=== PATIENT | female | born 1955 | race Caucasian/White ===

== ENCOUNTER 2020-04-03 08:23 | Outpatient (REF) | payer BC, SELFPAY ==
--- NOTE | 2020-04-03 08:26 | MM_ITS ---
EXAMINATION: MM SCREENING DIGITAL BREAST TOMOSYNTHESIS, BILATERAL CLINICAL INFORMATION: Screening. Asymptomatic. The lifetime risk of breast cancer based on the Tyrer-Cuzick Model is 9.7%. COMPARISON: Mammography: April 08, 2019 and studies dating back to February 20, 2011 TECHNIQUE: Digital breast tomosynthesis is performed in both the craniocaudal and mediolateral oblique views along with computer-aided detection (CAD). Synthesized 2D images are generated from the tomosynthesis. FINDINGS: There are scattered areas of fibroglandular density (ACR BI-RADS breast composition Category b). There are no significant masses, abnormal calcifications, or other abnormalities. There are scattered stable circumscribed densities. MM/MM tomosynthesis screening BI IMPRESSION: There are no significant changes from prior study. ASSESSMENT: BI-RADS 1: Negative RECOMMENDATION: Routine annual mammography screening. This patient's information was entered into a reminder system with a target due date for their next mammogram.
== END 2020-04-03 08:24 | disposition home or self-care (01) ==
LOC: HO.MAMMO 08:23
PROVIDERS: Visit Provider Internal Medicine
DX: Z12.31 Encounter for screening mammogram for malignant neoplasm of breast (principal)
CPT/HCPCS: 77063; 77067

== ENCOUNTER 2020-08-24 10:41 | Outpatient (REF) | payer BC, SELFPAY ==
[2020-08-24 11:45] LABS: MANUAL DIFF FLAG NO
[2020-08-24 12:01] LABS: Basophils Absolute Auto 0.1 X10*3/uL (0.0-0.2); Basophils Percent Auto 0.6 % (0-2); Eosinophils Absolute Auto 0.3 X10*3/uL (0.0-0.4); Eosinophils Percent Auto 3.6 % (0-4); Hematocrit 43.7 % (37-47); Hemoglobin 14.2 g/dl (12.0-16.0); Imm Gran Abs Auto 0.02 X10*3/uL (0.00-0.03); Imm Gran Pct Auto 0.3 % (0.0-0.4); Lymphocytes Absolute Auto 1.9 X10*3/uL (1.2-4.9); Lymphocytes Percent Auto 23.5 % (20-40); Mean Corpuscular HGB Conc 32.5 g/dl (31.0-35.0); Mean Platelet Volume 10.7 fL (9.4-12.3); Monocytes Absolute Auto 0.6 X10*3/uL (0.1-1.2); Monocytes Percent Auto 7.8 % (2-11); Neutrophils Absolute Auto 5.1 X10*3/uL (2.0-8.3); Neutrophils Percent Auto 64.2 % (45-73); Platelet Count 338 X10*3/uL (160-400); Red Blood Count 5.08 X10*6/uL (4.20-5.50); Red Cell Distribution Width 12.3 % (11.0-16.0)
[2020-08-24 12:35] LABS: Alanine Aminotransferase 24 U/L (0-31); Albumin Level 4.6 g/dL (3.5-5.0); Alkaline Phosphatase 77 U/L (39-117); Anion Gap 15 (12-20); Aspartate Amino Transferase 18 U/L (5-31); Bilirubin Total 0.5 mg/dL (0.0-1.0); Blood Urea Nitrogen 18 mg/dL (9-16); Calcium 10.2 mg/dL (8.4-10.2); Carbon Dioxide 23 mmol/L (22-29); Chloride 103 mmol/L (96-108); Cholesterol 175 mg/dL; Estimated Glomerular Filt Rate > 60; Glucose Random 253 mg/dL (60-115); HDL Cholesterol 51 mg/dL; LDL Cholesterol Calculated 96 mg/dl; Potassium 4.9 mmol/L (3.3-5.1); Sodium 136 mmol/L (135-145); Total Protein 7.1 g/dL (6.5-8.0); Triglycerides 140 mg/dL
[2020-08-24 12:36] LABS: Free T4 (Free Thyroxine) 0.87 ng/dL (0.71-1.85); Thyroid Stimulating Hormone 2.11 uIU/mL (0.32-4.0); Vitamin D 25-OH Total 37.3 ng/mL (>30)
[2020-08-24 13:03] LABS: Creatinine Urine 78.94 mg/dL; Microalbum/Creatinine Ratio Ur 16.4 ug/mg cr
[2020-08-24 13:26] LABS: Folate 18.8 ng/mL (> or = 4.0); Vitamin B12 1688 pg/mL (200-900)
== END 2020-08-24 10:42 | disposition home or self-care (01) ==
LOC: HO.LAB 10:41
PROVIDERS: PCP Internal Medicine; Visit Provider Internal Medicine
DX: E11.65 Type 2 diabetes mellitus with hyperglycemia (principal); I10 Essential (primary) hypertension; E78.00 Pure hypercholesterolemia, unspecified
CPT/HCPCS: 36415; 80053; 80061; 82043; 82306; 82607; 82746; 84439; 84443; 85025

== ENCOUNTER → 2020-11-11 14:46 | Outpatient (BNVA) | payer BC, SELFPAY | PROVIDERS: PCP Internal Medicine; Visit Provider Nurse Practitioner Family ==

== ENCOUNTER 2021-01-21 15:09 | Outpatient (REF) | payer BC, SELFPAY ==
[2021-01-21 17:54] LABS: Appearance Urine CLEAR; Color Urine YELLOW; Glucose Urine UA NEG (NEG); Leukocyte Esterase Urine NEG (NEG); Nitrite Urine NEG (NEG); Specific Gravity - Urine <= 1.005 (1.005-1.025); Urine Blood NEG (NEG); Urine Ketones NEG (NEG); Urine Protein NEG (NEG-TRACE)
[2021-01-21 18:08] LABS: Creatinine Urine 16.32 mg/dL
== END 2021-01-21 15:10 | disposition home or self-care (01) ==
LOC: HO.LAB 15:09
PROVIDERS: PCP Internal Medicine; Visit Provider Internal Medicine
DX: R10.9 Unspecified abdominal pain (principal); E11.65 Type 2 diabetes mellitus with hyperglycemia
CPT/HCPCS: 81003

== ENCOUNTER 2021-04-29 08:03 | Outpatient (REF) | payer BC, SELFPAY ==
--- NOTE | ~2021-04-29 | MM_ITS ---
EXAMINATION: MM SCREENING DIGITAL BREAST TOMOSYNTHESIS, BILATERAL CLINICAL INFORMATION: Screening. Asymptomatic. The lifetime risk of breast cancer based on the Tyrer-Cuzick Model is 5%. COMPARISON: Mammography: 04/03/2020, 04/08/2019, 03/29/2019, 03/22/2018, 03/19/2017 TECHNIQUE: Digital breast tomosynthesis is performed in both the craniocaudal and mediolateral oblique views along with computer-aided detection (CAD). Synthesized 2D images are generated from the tomosynthesis. FINDINGS: There are scattered areas of fibroglandular density (ACR BI-RADS breast composition Category b). There is fine fibronodular parenchymal pattern again noted with small minor waxing and waning nodularity. There are no architectural abnormalities. 2 biopsy clip markers again noted left breast mid 12:00 position. There are no abnormal calcifications. The axilla and skin contours are unremarkable. The left breast has interval dominant nodule 0.7 cm mid 12:00 position. Margins are incompletely defined. Patient will be recalled for additional imaging. MM/MM tomosynthesis screening BI IMPRESSION: 1. Left: Dominant nodule mid 12:00 position 0.7 cm. 2. Right: No significant changes from prior studies. ASSESSMENT: BI-RADS 0: Incomplete - Need Additional Imaging Evaluation RECOMMENDATION: 1. Additional views of the left breast (spot CC, spot ML). 2. Targeted ultrasound left breast. 3. Radiology department staff will contact the patient for additional imaging. This patient's information was entered into a reminder system with a target due date for their next mammogram.
== END 2021-04-29 08:04 | disposition home or self-care (01) ==
LOC: HO.MAMMO 08:03
PROVIDERS: PCP Internal Medicine; Visit Provider Internal Medicine
DX: Z12.31 Encounter for screening mammogram for malignant neoplasm of breast (principal)
CPT/HCPCS: 77063; 77067

== ENCOUNTER 2021-05-25 08:29 | Outpatient (REF) | payer BC, SELFPAY ==
--- NOTE | ~2021-05-25 | US_ITS ---
EXAMINATION: US DIAGNOSTIC ULTRASOUND BREAST, LEFT CLINICAL INFORMATION: Enlarging nodule superior left breast. COMPARISON: April 29, 2021 and studies dating back to July 15, 2009. TECHNIQUE: Ultrasound of the breast is performed with real-time harvey scale imaging and color Doppler. FINDINGS: Targeted left breast ultrasound demonstrates numerous small cysts when I scanned after the technologist. At approximately 1:00 position 4 cm nipple there is a 5 x 4 x 5 mm simple appearing cyst directly adjacent to a 3 x 1 mm cyst. There is no internal vascularity. Back wall is smooth. There is through sound transmission without distal sound shadowing. The cyst is wider than it is tall. This corresponds to the general area of the density. No suspicious solid mass or region of abnormal distal sound shadowing identified. Results are discussed with the patient at time of visit. US/US breast LT limited IMPRESSION: Left breast cysts with no suspicious solid lesion identified. ASSESSMENT: BI-RADS 2: Benign RECOMMENDATION: Routine annual mammography screening.
--- NOTE | ~2021-05-25 | MM_ITS ---
EXAMINATION: MM DIAGNOSTIC DIGITAL BREAST TOMOSYNTHESIS, LEFT CLINICAL INFORMATION: Left breast nodule. COMPARISON: Mammography: 04/29/2021 and studies dating back to 02/20/2011. TECHNIQUE: Digital breast tomosynthesis is performed. 2D images are generated from the tomosynthesis. The following views are obtained: Spot compression craniocaudal and mediolateral oblique views. FINDINGS: There are scattered areas of fibroglandular density (ACR BI-RADS breast composition Category b). Additional views again demonstrate multiple circumscribed densities a few with slightly lobular margins. No suspicious calcifications are identified. There is noted to be waxing and waning of some of the densities. The enlarging density measures approximately 7 x 5 mm in size. This lies within the superior aspect at approximately the 12 o'clock position. This lies approximately 6 cm from the nipple. The margins were difficult to evaluate however on tomosynthesis views they are seen to be smooth and not irregular or poorly defined. Targeted left breast ultrasound demonstrates numerous small cysts when I scanned after the technologist. At approximately 1 o'clock position 4 cm from the nipple there is a 5 x 4 x 5 mm simple appearing cyst directly adjacent to a 3 x 1 mm cyst. There is no internal vascularity. Back wall is smooth. There is through sound transmission without distal sound shadowing. The cyst is wider than it is tall. This corresponds to the general area of the density. No suspicious solid mass or region of abnormal distal sound shadowing identified. Results are discussed with the patient at time of visit. MM/MM tomosynthesis added views L IMPRESSION: Left breast cysts with no suspicious solid lesion identified. ASSESSMENT: BI-RADS 2: Benign RECOMMENDATION: Routine annual mammography screening. This patient's information was entered into a reminder system with a target due date for their next mammogram.
== END 2021-05-25 08:30 | disposition home or self-care (01) ==
LOC: HO.MAMMO 08:29
PROVIDERS: Visit Provider Internal Medicine
DX: R92.2 Inconclusive mammogram (principal)
CPT/HCPCS: 76642; 77061; 77065

== ENCOUNTER 2021-09-14 10:24 | Outpatient (REF) | payer BC, SELFPAY ==
--- NOTE | ~2021-09-14 | XR_ITS ---
EXAMINATION: XR CERVICAL SPINE CLINICAL INFORMATION: Neck pain COMPARISON: None TECHNIQUE: 3 views of the cervical spine were obtained. FINDINGS: Bone alignment is normal. No fracture or dislocation is seen. There is degenerative spondylosis and degenerative disc disease at C5-C6 and C6-C7. Prevertebral soft tissues are normal. XR/XR cervical spine 2V IMPRESSION: Degenerative changes at C5-C6 and C6-C7.
[2021-09-14 10:36] LABS: MANUAL DIFF FLAG NO
[2021-09-14 11:07] LABS: Basophils Percent Auto 0.4 % (0-2); Eosinophils Absolute Auto 0.2 X10*3/uL (0.0-0.4); Eosinophils Percent Auto 1.8 % (0-4); Hematocrit 40.8 % (37.0-47.0); Hemoglobin 13.1 g/dl (12.0-16.0); Imm Gran Abs Auto 0.03 X10*3/uL (0.00-0.03); Imm Gran Pct Auto 0.3 % (0.0-0.4); Lymphocytes Absolute Auto 1.6 X10*3/uL (1.2-4.9); Lymphocytes Percent Auto 16.4 % (20-40); Mean Corpuscular HGB Conc 32.1 g/dl (31.0-35.0); Mean Corpuscular Hemoglobin 27.5 pg (27.0-33.0); Mean Corpuscular Volume 85.7 fL (80.0-98.0); Mean Platelet Volume 9.5 fL (9.4-12.3); Monocytes Absolute Auto 0.7 X10*3/uL (0.1-1.2); Monocytes Percent Auto 7.6 % (2-11); Neutrophils Absolute Auto 7.1 x10*3/uL (2.0-8.3); Neutrophils Percent Auto 73.5 % (45-73); Platelet Count 418 X10*3/uL (160-400); Red Blood Count 4.76 X10*6/uL (4.20-5.50); Red Cell Distribution Width 12.7 % (11.0-16.0); White Blood Count 9.7 X10*3/uL (4.8-10.8)
[2021-09-14 11:37] LABS: Alanine Aminotransferase 13 U/L (0-31); Albumin Level 4.3 g/dL (3.5-5.0); Alkaline Phosphatase 94 U/L (39-117); Anion Gap 12 (12-20); Aspartate Amino Transferase 13 U/L (5-31); Bilirubin Total 0.4 mg/dL (0.0-1.0); Blood Urea Nitrogen 14 mg/dL (9-16); Calcium 9.7 mg/dL (8.4-10.2); Carbon Dioxide 26 mmol/L (22-29); Chloride 104 mmol/L (96-108); Cholesterol 177 mg/dL; Estimated Glomerular Filt Rate > 60; Glucose Random 147 mg/dL (60-115); HDL Cholesterol 41 mg/dL; LDL Cholesterol Calculated 108 mg/dl; Potassium 4.9 mmol/L (3.3-5.1); Sodium 137 mmol/L (135-145); Triglycerides 144 mg/dL
[2021-09-14 11:57] LABS: Creatinine Urine 121.68 mg/dL; Microalbum/Creatinine Ratio Ur 10.6 ug/mg cr
[2021-09-14 12:01] LABS: Free T4 (Free Thyroxine) 0.95 ng/dL (0.71-1.85); Thyroid Stimulating Hormone 2.11 uIU/mL (0.32-4.0); Vitamin D 25-OH Total 29.2 ng/mL (>30)
[2021-09-14 12:06] LABS: Folate 18.2 ng/mL (> or = 4.0); Vitamin B12 1134 pg/mL (200-900)
[2021-09-14 12:46] LABS: Estimated Average Glucose 160 mg/dL; Hemoglobin A1c % 7.2 %
== END 2021-09-14 10:25 | disposition home or self-care (01) ==
LOC: HO.XRAY 10:24
PROVIDERS: PCP Internal Medicine; Visit Provider Internal Medicine
DX: M54.2 Cervicalgia (principal); I10 Essential (primary) hypertension; E78.00 Pure hypercholesterolemia, unspecified; E11.65 Type 2 diabetes mellitus with hyperglycemia
CPT/HCPCS: 36415; 72040; 80053; 80061; 82043; 82306; 82607; 82746; 83036; 84439; 84443; 85025

== ENCOUNTER 2021-11-14 15:35 | Outpatient (REF) | payer BC, SELFPAY ==
--- NOTE | ~2021-11-14 | XR_ITS ---
EXAMINATION: BILATERAL HIP CLINICAL INFORMATION: Pain COMPARISON: None TECHNIQUE: AP and frog-leg views each hip. FINDINGS: Right hip: There is maintained right hip joint space. No visible acute fracture, dislocation or subluxation seen. No bony erosive changes the soft tissues are normal. Left hip: There is no visible acute fracture, dislocation or subluxation. No bony erosive changes. The soft tissues are normal. XR/XR hip RT min 2V IMPRESSION: Unremarkable bilateral hip exam.
--- NOTE | ~2021-11-14 | XR_ITS ---
EXAMINATION: BILATERAL HIP CLINICAL INFORMATION: Pain COMPARISON: None TECHNIQUE: AP and frog-leg views each hip. FINDINGS: Right hip: There is maintained right hip joint space. No visible acute fracture, dislocation or subluxation seen. No bony erosive changes the soft tissues are normal. Left hip: There is no visible acute fracture, dislocation or subluxation. No bony erosive changes. The soft tissues are normal. XR/XR hip LT min 2V IMPRESSION: Unremarkable bilateral hip exam.
== END 2021-11-14 15:36 | disposition home or self-care (01) ==
LOC: HO.XRAY 15:35
PROVIDERS: PCP Internal Medicine; Visit Provider Nurse Practitioner Family
DX: M25.552 Pain in left hip (principal); M25.551 Pain in right hip
CPT/HCPCS: 73502

== ENCOUNTER 2022-04-13 09:21 | Outpatient (REF) | payer BC, SELFPAY ==
[2022-04-13 09:32] LABS: MANUAL DIFF FLAG NO
[2022-04-13 09:47] LABS: Basophils Percent Auto 0.5 % (0-2); Eosinophils Absolute Auto 0.3 X10*3/uL (0.0-0.4); Eosinophils Percent Auto 4.3 % (0-4); Hemoglobin 13.4 g/dl (12.0-16.0); Imm Gran Abs Auto 0.03 X10*3/uL (0.00-0.03); Imm Gran Pct Auto 0.4 % (0.0-0.4); Lymphocytes Absolute Auto 1.8 X10*3/uL (1.2-4.9); Lymphocytes Percent Auto 21.9 % (20-40); Mean Corpuscular HGB Conc 32.7 g/dl (31.0-35.0); Mean Corpuscular Hemoglobin 27.7 pg (27.0-33.0); Mean Corpuscular Volume 84.9 fL (80.0-98.0); Mean Platelet Volume 9.6 fL (9.4-12.3); Monocytes Absolute Auto 0.7 X10*3/uL (0.1-1.2); Monocytes Percent Auto 8.1 % (2-11); Neutrophils Absolute Auto 5.2 x10*3/uL (2.0-8.3); Neutrophils Percent Auto 64.8 % (45-73); Platelet Count 340 X10*3/uL (160-400); Red Blood Count 4.83 X10*6/uL (4.20-5.50); Red Cell Distribution Width 12.9 % (11.0-16.0)
[2022-04-13 10:49] LABS: Estimated Average Glucose 146 mg/dL; Hemoglobin A1c % 6.7 %
[2022-04-13 11:00] LABS: Alanine Aminotransferase 20 U/L (0-31); Albumin Level 4.3 g/dL (3.5-5.0); Alkaline Phosphatase 77 U/L (39-117); Anion Gap 14 (12-20); Aspartate Amino Transferase 17 U/L (5-31); Bilirubin Total 0.5 mg/dL (0.0-1.0); Blood Urea Nitrogen 19 mg/dL (9-16); Calcium 9.6 mg/dL (8.4-10.2); Carbon Dioxide 24 mmol/L (22-29); Chloride 106 mmol/L (96-108); Cholesterol 183 mg/dL; Estimated Glomerular Filt Rate > 60; Glucose Random 172 mg/dL (60-115); HDL Cholesterol 43 mg/dL; LDL Cholesterol Calculated 115 mg/dl; Potassium 5.2 mmol/L (3.3-5.1); Sodium 139 mmol/L (135-145); Total Protein 6.7 g/dL (6.5-8.0); Triglycerides 127 mg/dL
[2022-04-13 11:38] LABS: Creatinine Urine 66.34 mg/dL
== END 2022-04-13 09:22 | disposition home or self-care (01) ==
LOC: HO.LAB 09:21
PROVIDERS: PCP Internal Medicine; Visit Provider Internal Medicine
DX: E78.00 Pure hypercholesterolemia, unspecified (principal); D75.839 Thrombocytosis, unspecified; E11.65 Type 2 diabetes mellitus with hyperglycemia
CPT/HCPCS: 36415; 80053; 80061; 83036; 85025

== ENCOUNTER 2022-05-01 10:49 | Outpatient (REF) | payer BC, SELFPAY | END 2022-05-01 10:50 | disposition home or self-care (01) | LOC: HO.MAMMO 10:49 | PROVIDERS: Visit Provider Internal Medicine | DX: Z13.89 Encounter for screening for other disorder (principal) ==

== ENCOUNTER 2022-05-01 10:49 | Outpatient (REF) | payer BC, SELFPAY ==
--- NOTE | ~2022-05-01 | MM_ITS ---
EXAMINATION: BONE DENSITOMETRY CLINICAL INDICATION: Age-related osteoporosis without current pathological fracture. COMPARISON: Previous BD dated 05/19/2019 and baseline BD dated 09/27/2010. TECHNIQUE: Using a [employer] DXA System (software version: 13.1) manufactured by [employer], dual-energy x-ray absorptiometry was performed of the lumbar spine and left hip. The images are of good technical quality. Summary results are attached. FINDINGS: AP SPINE L1-L4: Current: BMD 0.916 g/cm2, Z-score -1.0, T-score -2.2, osteopenia, 0.9% increase from previous, 5.5% decrease from baseline (<5% change is not significant). Prior: BMD 0.908 g/cm2. Baseline: BMD 0.969 g/cm2. LEFT FEMUR, NECK: Current: BMD 0.843 g/cm2, Z-score -0.2, T-score -1.4, osteopenia. Prior: BMD 0.845 g/cm2. Baseline: BMD 0.902 g/cm2. LEFT FEMUR, TOTAL: Current: BMD 0.927 g/cm2, Z-score 0.3, T-score -0.6, normal, 0.3% decrease from previous, 2.6% decrease from baseline (<5% change is not significant). Prior: BMD 0.930 g/cm2. Baseline: BMD 0.952 g/cm2. IDENTIFIED RISK FACTORS: Low calcium intake. Menopause. HISTORY OF FRACTURE: None listed. MEDICATIONS: Calcium supplement and/or multivitamin. MM/XR DEXA axial skeleton IMPRESSION: 1. DIAGNOSIS: Osteopenia based on the lowest T-score value of -2.2 in the lumbar spine applying World Health Organization criteria. 2. 10-YEAR FRACTURE RISK PREDICTION, FRAX: Major osteoporotic fracture (clinical spine, forearm, hip or shoulder) 8.6%. Hip fracture 0.9%. 3. Treatment Recommendations: NOF guidelines recommend consideration for treatment in postmenopausal women and men age 50 and older presenting with the following: -A hip or vertebral (clinical or morphometric) fracture. -T-score less than or equal to -2.5 at the femoral neck or spine after appropriate evaluation to exclude secondary causes. -Low bone mass at the hip or spine and a 10-year fracture probability by FRAX of greater than or equal to 3% for hip fracture or greater than or equal to 20% for major osteoporotic fracture based on the [place] adapted WHO algorithm. 4. Other Recommendations: All treatment decisions require clinical judgment and consideration of individual patient factors, including patient preferences, comorbidities, previous drug use, risk factors not captured in the FRAX model (e.g. frailty, falls, vitamin D deficiency, increased bone turnover, interval significant decline in bone density) and possible under or overestimation of fracture risk by FRAX. Additional medical evaluation for secondary cause of low bone mineral density may be appropriate. FUTURE SCAN RECOMMENDATION: People with diagnosed cases of osteoporosis or at high risk for fracture should have regular bone mineral density tests. For patients eligible for Medicare, routine testing is allowed once every 2 years. The testing frequency can be increased to one year for patients who have rapidly progressing disease, those who are receiving or discontinuing medical therapy to restore bone mass, or have additional risk factors.
--- NOTE | ~2022-05-01 | MM_ITS ---
EXAMINATION: MM SCREENING DIGITAL BREAST TOMOSYNTHESIS, BILATERAL CLINICAL INFORMATION: Screening. Asymptomatic. The lifetime risk of breast cancer based on the Tyrer-Cuzick Model is 5.3%. COMPARISON: Mammography: 05/25/2021 and studies dating back to 01/13/2015. TECHNIQUE: Digital breast tomosynthesis is performed in both the craniocaudal and mediolateral oblique views along with computer-aided detection (CAD). Synthesized 2D images are generated from the tomosynthesis. FINDINGS: There are scattered areas of fibroglandular density (ACR BI-RADS breast composition Category b). There are no new significant masses, abnormal calcifications, or other abnormalities. Multiple circumscribed densities are again seen bilaterally with waxing and waning of one at the approximately 1 o'clock position within the left breast which on previous study was demonstrated to represent a cyst. MM/MM tomosynthesis screening BI IMPRESSION: No significant changes from prior exam. ASSESSMENT: BI-RADS 2: Benign. RECOMMENDATION: Routine annual mammography screening. This patient's information was entered into a reminder system with a target due date for their next mammogram.
== END 2022-05-01 10:50 | disposition home or self-care (01) ==
LOC: HO.MAMMO 10:49
PROVIDERS: Visit Provider Internal Medicine
DX: Z12.31 Encounter for screening mammogram for malignant neoplasm of breast (principal); Z13.820 Encounter for screening for osteoporosis; M81.0 Age-related osteoporosis without current pathological fracture; M85.80 Other specified disorders of bone density and structure, unspecified site; Z78.0 Asymptomatic menopausal state
CPT/HCPCS: 77063; 77067; 77080

== ENCOUNTER 2022-06-30 09:51 | Day surgery (SDC) | payer BC, SELFPAY ==
[2022-04-11 10:46] VITALS: BMI 29.2
--- NOTE | 2022-06-29 09:47 | HO.ANESPROP2 ---
Documented by User: Gifty Solares NP 06/29/22 09:48 HPI - Anesthesia Eval Consult details Narrative: 67yo F for Colonoscopy PMFSH Active Problems Active Problems: All Active Problems (Updated 04/18/22 @ 16:12 by Carmelo Marsh MD) Osteopenia (Acute) Glaucoma (Acute) Colon cancer screening (Acute) Anxiety and depression (Acute) Primary osteoarthritis of both hips (Acute) Recurrent major depression (Acute) Abdominal pain (Acute) Breast cancer screening by mammogram (Acute) COVID-19 virus infection (Acute) Neck pain (Acute) Thrombocytosis (Acute) Degeneration, intervertebral disc, cervical (Acute) Cervical spondylosis (Acute) Hypercholesterolemia (Acute) Type 2 diabetes mellitus with hyperglycemia (Acute) Obesity (BMI 30-39.9) (Acute) Hypertension (Acute) Past Medical History Medical History (Updated 04/18/22 @ 16:12 by Carmelo Marsh MD) Bile salt-induced diarrhea Cystocele History of COVID-19 Hypercholesterolemia Hypertension Irritable bowel syndrome Obesity (BMI 30-39.9) Thyroid nodule Type 2 diabetes mellitus with hyperglycemia Vitamin D deficiency Family History Family History Father Hypertension Dementia Elevated cholesterol Mother Asthma Diabetes Emphysema of lung Maternal Grandmother Skin cancer Lymphoma Maternal Grandfather Myocardial infarction Sister COPD (chronic obstructive pulmonary disease) Brother Diabetes Son Anxiety Surgical History Surgical History H/O colonoscopy History of cholecystectomy History of pubovaginal sling History of thyroid surgery History of tonsillectomy History of tubal ligation Social History Social History Housing: House Alcohol intake: current Alcohol intake frequency: holidays/special occasions only Patient Tobacco Use Status: Former Tobacco user e-Cigarette/Vaping Use: Never Used Second Hand Smoke Exposure: No Use of substances other than those prescribed or required for medical reasons: No Are you DNR?: No Advance Directives: No Advance Directives Information Provided: Yes Current occupational status: retired Current occupation: [employer] Cognitive needs: No Hearing needs: No Vision needs: Yes Meds Allergies Allergy/AdvReac Type Severity Reaction Status Date / Time adhesive [BANDAGE,ADHESIVE] Allergy Severe SKIN PEELS Verified 04/18/22 15:46 OFF latex [LATEX] Allergy Intermediate SKIN Verified 04/18/22 15:46 BLEEDS, REDNESS metformin Allergy Intermediate diarrhea Verified 04/18/22 15:46 Penicillins [PENICILLINS] Allergy Intermediate HOT Verified 04/18/22 15:46 SWELLING Sulfa (Sulfonamide Allergy Intermediate weakness, Verified 04/18/22 15:46 Antibiotics) lethargy azithromycin Allergy Unknown reaction Verified 04/18/22 15:46 [Zithromax Z-Remi] unknown Home Medications Medication Instructions Recorded Confirmed Last Taken Type calcium carbonate 600 mg calcium 600 mg PO DAILY 02/19/20 06/30/22 Unknown History (1,500 mg) tablet (Calcium) cyanocobalamin (vitamin B-12) 1,000 mcg PO DAILY 02/19/20 06/30/22 Unknown History 1,000 mcg capsule multivitamin 1 tab PO DAILY 02/19/20 06/30/22 Unknown History Exam Exam Date and Time: June 29, 2022 0947 Height,Weight and Vital Signs: Height 5 ft 3 in Weight 74.843 kg Pertinent Lab Results Pertinent Lab Results: Laboratory Tests 04/13/22 04/13/22 09:31 09:31 WBC 8.0 Hgb 13.4 Hct 41.0 Plt Count 340 Sodium 139 Potassium 5.2 H Chloride 106 Carbon Dioxide 24 BUN 19 H Creatinine 0.80 Assessment and Plan Assessment Anesthesia Assessment: Chart Reviewed Documented by User: Jihan Alcaraz MD 06/30/22 11:17 [facility] Past Medical History Medical History (Updated 04/18/22 @ 16:12 by Carmelo Marsh MD) Bile salt-induced diarrhea Cystocele History of COVID-19 Hypercholesterolemia Hypertension Irritable bowel syndrome Obesity (BMI 30-39.9) Thyroid nodule Type 2 diabetes mellitus with hyperglycemia Vitamin D deficiency Family History Family History Father Hypertension Dementia Elevated cholesterol Mother Asthma Diabetes Emphysema of lung Maternal Grandmother Skin cancer Lymphoma Maternal Grandfather Myocardial infarction Sister COPD (chronic obstructive pulmonary disease) Brother Diabetes Son Anxiety Family history of problems with anesthesia: No Surgical History Surgical History H/O colonoscopy History of cholecystectomy History of pubovaginal sling History of thyroid surgery History of tonsillectomy History of tubal ligation History of Problems with Anesthesia: No Social History Social History Housing: House Alcohol intake: current Alcohol intake frequency: holidays/special occasions only Patient Tobacco Use Status: Former Tobacco user e-Cigarette/Vaping Use: Never Used Second Hand Smoke Exposure: No Use of substances other than those prescribed or required for medical reasons: No Are you DNR?: No Advance Directives: No Advance Directives Information Provided: Yes Current occupational status: retired Current occupation: [employer] Cognitive needs: No Hearing needs: No Vision needs: Yes Meds Allergies Allergy/AdvReac Type Severity Reaction Status Date / Time adhesive [BANDAGE,ADHESIVE] Allergy Severe SKIN PEELS Verified 04/18/22 15:46 OFF latex [LATEX] Allergy Intermediate SKIN Verified 04/18/22 15:46 BLEEDS, REDNESS metformin Allergy Intermediate diarrhea Verified 04/18/22 15:46 Penicillins [PENICILLINS] Allergy Intermediate HOT Verified 04/18/22 15:46 SWELLING Sulfa (Sulfonamide Allergy Intermediate weakness, Verified 04/18/22 15:46 Antibiotics) lethargy azithromycin Allergy Unknown reaction Verified 04/18/22 15:46 [Zithromax Z-Remi] unknown Home Medications Medication Instructions Recorded Confirmed Last Taken Type calcium carbonate 600 mg calcium 600 mg PO DAILY 02/19/20 06/30/22 Unknown History (1,500 mg) tablet (Calcium) cyanocobalamin (vitamin B-12) 1,000 mcg PO DAILY 02/19/20 06/30/22 Unknown History 1,000 mcg capsule multivitamin 1 tab PO DAILY 02/19/20 06/30/22 Unknown History Exam Airway Mallampati Class: II TM Dist: >3cm Neck ROM: Full Denture: Upper and Lower Heart: rrr Lungs: cta Assessment and Plan Assessment Anesthesia Assessment: Anesthesia Plan Discussed Final Anesthetic Review Family History of Problems with Anesthesia: No History of Problems with Anesthesia: No NPO: Yes ASA Class: II Final Preanesthetic Review: No Changes in Pt Med Stat, Meds/Allgs Chart Reviewed and Consent Obtained/Reviewed Patient Risk: Intermediate Procedure Risk: Intermediate Anesthetic Plan Anesthetic Plan: MAC: Disposition: Standard PACU
[2022-06-30 10:25] VITALS: BMI 30.1
[2022-06-30 10:33] VITALS: BP 129/78; PULSE 77; RESP 18; TEMP 36.8; O2SAT 100
[2022-06-30 10:41] LABS: Glucose, Whole Blood 142 mg/dL (60-115)
[2022-06-30] MEDS: Lactated Ringers 1,000 ML 100 ML IVCONT (11:08)
--- NOTE | 2022-06-30 11:17 | MHC.SHP ---
Pre-Procedural Eval Section A Date of Service: 06/30/22 The patient is an INPATIENT: No The History & Physical has been completed within 30 days and I have reviewed it.: No Section B Chief Complaint: Colon cancer screening Relevant Family History (Specify if Yes): No Relevant Social History: Tobacco Use (Former smoker) Present Medications: see Short Stay Collaborative assessment Medical History: Significant History (Bile salt-induced diarrhea Cystocele Hypercholesterolemia Hypertension Irritable bowel syndrome Obesity (BMI 30-39.9) Thyroid nodule Type 2 diabetes mellitus with hyperglycemia Vitamin D deficiency) History of Previous Operations: Relevant previous surgery/procedure and date(s) (History of cholecystectomy History of pubovaginal sling History of thyroid surgery History of tonsillectomy History of tubal ligation) Allergies: Allergies Allergy/AdvReac Type Severity Reaction Status Date / Time adhesive [BANDAGE,ADHESIVE] Allergy Severe SKIN PEELS Verified 04/18/22 15:46 OFF latex [LATEX] Allergy Intermediate SKIN Verified 04/18/22 15:46 BLEEDS, REDNESS metformin Allergy Intermediate diarrhea Verified 04/18/22 15:46 Penicillins [PENICILLINS] Allergy Intermediate HOT Verified 04/18/22 15:46 SWELLING Sulfa (Sulfonamide Allergy Intermediate weakness, Verified 04/18/22 15:46 Antibiotics) lethargy azithromycin Allergy Unknown reaction Verified 04/18/22 15:46 [Zithromax Z-Remi] unknown Review of Systems Sugical H&P ROS: Negative: Constitution, Cardiovascular, Respiratory and Gastrointestinal Exam Surgical H&P Exam: Normal: Heart, Normal: Lungs, Normal: Extremities and Normal: Abdomen Plan Diagnosis/Plan: Unchanged I have reviewed the history and physical and performed a pertinent physical examination on my patient. No changes have occurred unless specified. Time Spent With Patient Time: Total time managing care of this patient today ____ minutes.
--- NOTE | 2022-06-30 11:23 | P.OP_ITS ---
Operative Note Operative Note Date of Service: 06/30/22 Narrative: COLONOSCOPY TILL CECUM WITH BIOPSIES Pre-op diagnosis: Colon cancer screening, intermittent diarrhea Post-op diagnosis:? Colon polyp, diverticulosis, hemorrhoids Endoscopist:? Alberto Arroyo MD Anesthesia:?MAC Consent: Indications for the procedure and potential complications of bleeding, perforation, reaction to medications and missed diagnosis were discussed with the patient and informed consent was obtained. Instrument: Olympus PCF H 190 L variable stiffness pediatric colonoscope Monitoring: Vital signs and clinical assessment, intermittent blood pressure monitoring, continuous EKG monitoring, Pulse oximetry and Carbon Dioxide monitoring were done throughout the procedure. Please see anesthesia flowsheet. Colon withdrawl time was 21 minutes. Procedure: The patient was placed in the left lateral decubitis position and pre-procedure medications were administered. After a digital rectal examination of the ano-rectum, the video colonoscope was inserted into the rectum and advanced through the colon to the cecum. The colonoscope was slowly withdrawn in a retrograde panoramic fashion and the colon mucosa was carefully examined including a retroflexed view of the rectum. Findings and interventions are described below. Procedure Difficulty: Without difficulty Findings: Terminal Ileum: Not evaluated Cecum: A 4-5 mm sessile polyp - removed with a cold biopsy Ascending Colon: Normal Transverse Colon: Moderate diverticulosis Descending Colon: Moderate diverticulosis Sigmoid Colon: Severe diverticulosis Rectum: Normal Ano-rectum: Moderate internal hemorrhoids and perianal skin tags Colon preparation: Good Impression and Post Procedure Diagnosis: Colonoscopy Findings: One small polyp removed Random biopsies were obtained from the right and left colon to check for microscopic colitis Moderate diverticulosis seen in the transverse and left colon Moderate hemorrhoids on retroflexed exam. Plan: Await pathology results Patient has an appointment on 07/14/22 in the GI [facility] with Cary Giraldo FNP- [facility]. Repeat Colonoscopy interval based on path results - in 5 years if polyps are adenomatous and 10 years if polyps are hyperplastic. Above findings were reviewed with the patient and colon polyps and diverticulosis handouts were given in the discharge area
[2022-06-30 11:59] VITALS: BP 86/30; PULSE 79; RESP 16; TEMP 36.6; O2SAT 97
[2022-06-30 12:14] VITALS: BP 135/71; PULSE 76; RESP 16; TEMP 36.6; O2SAT 97
== END 2022-06-30 13:15 | disposition home or self-care (01) ==
PROVIDERS: PCP Internal Medicine; Visit Provider Internal Medicine Gastroenterology
PROC: 0DJD8ZZ Inspection of Lower Intestinal Tract, Via Natural or Artificial Opening Endoscopic (ICD-10-PCS; CPT 45378; principal; 2022-06-30 11:10)
DX: Z12.11 Encounter for screening for malignant neoplasm of colon (principal); K63.5 Polyp of colon; K57.30 Diverticulosis of large intestine without perforation or abscess without bleeding; K64.8 Other hemorrhoids; K64.4 Residual hemorrhoidal skin tags; K58.9 Irritable bowel syndrome, unspecified; I10 Essential (primary) hypertension; E11.65 Type 2 diabetes mellitus with hyperglycemia; E78.00 Pure hypercholesterolemia, unspecified; E55.9 Vitamin D deficiency, unspecified; Z79.84 Long term (current) use of oral hypoglycemic drugs; Z79.85 Long-term (current) use of injectable non-insulin antidiabetic drugs; Z79.899 Other long term (current) drug therapy; L23.1 Allergic contact dermatitis due to adhesives; Z88.0 Allergy status to penicillin; Z88.2 Allergy status to sulfonamides; Z88.8 Allergy status to other drugs, medicaments and biological substances; Z90.49 Acquired absence of other specified parts of digestive tract; Z87.891 Personal history of nicotine dependence
CPT/HCPCS: 45380; 82947; 88305

== ENCOUNTER → 2022-07-14 11:52 | Outpatient (BNVA) | payer BC, SELFPAY | PROVIDERS: PCP Internal Medicine; Visit Provider Nurse Practitioner Family ==

== ENCOUNTER 2023-01-08 13:47 | Outpatient (AMB) | payer MEDICARE, SELFPAY ==
[2023-01-08 14:05] VITALS: BP 152/88; PULSE 78; O2SAT 98; BMI 32.4
--- NOTE | 2023-01-08 14:05 | MHC.PC.OV ---
Vital Signs 01/08/23 14:05 Height 5 ft 3 in Weight 183 lb BMI 32.4 BP 152/88 H Blood Pressure Location Lt brachial Position Sitting Pulse 78 Pulse Source Pulse Oximeter Pulse Oximetry (%) 98 Oxygen Delivery Method Room Air Intake Visit Reasons: f/u Allergies adhesive [BANDAGE,ADHESIVE] Allergy (Severe, Verified 01/08/23 14:05) SKIN PEELS OFF latex [LATEX] Allergy (Intermediate, Verified 01/08/23 14:05) SKIN BLEEDS, REDNESS metformin Allergy (Intermediate, Verified 01/08/23 14:05) diarrhea Penicillins [PENICILLINS] Allergy (Intermediate, Verified 01/08/23 14:05) HOT SWELLING Sulfa (Sulfonamide Antibiotics) Allergy (Intermediate, Verified 01/08/23 14:05) weakness, lethargy azithromycin [Zithromax Z-Remi] Allergy (Unknown, Verified 01/08/23 14:05) reaction unknown Medication List - Last Reconciled 01/08/23 by Carmelo Marsh MD alprazolam 0.25 mg PO TID PRN 90 days blood sugar diagnostic As directed check the blood sugar once a day blood-glucose meter As directed check the blood sugar once a day calcium carbonate (Calcium) 600 mg PO DAILY cyanocobalamin (vitamin B-12) 1,000 mcg PO DAILY dulaglutide 1.5 mg (0.5 mL) subcut QWEEK 90 days gabapentin 100 mg PO BID glimepiride 4 mg PO DAILY lisinopril 30 mg PO DAILY 90 days multivitamin 1 tab PO DAILY sertraline 25 mg PO DAILY simvastatin 40 mg PO BEDTIME Tobacco use date assessed: 04/18/22 Fall risk assessment: No Falls in past year Last assessed Fall Risk: 01/08/23 Dental Screening Dental Screen Date: 01/08/23 Did you have a dental visit in the last 12 months?: Yes Did you have a dental problem in the last 6 months where you did not have access to dental care?: No Was dental information given to patient?: Patient has dentist HPI f/u HPI Details 67-year-old obese female with diabetes mellitus hypertension hypercholesterolemia recurrent major depression and osteoarthritis of the hips coming in for follow-up. Last seen in April 2022. Review of the notes 10 lb weight gain up-to-date with mammogram bone density colonoscopy. Patient was recently seen by the Gastroenterology for status post colonoscopy June 2022 normal is very problematic about daughter getting sick in July moved to [facility] Medical History (Updated 01/08/23 @ 14:16 by Carmelo Marsh MD) Colon cancer screening History of COVID-19 Irritable bowel syndrome Vitamin D deficiency Hypercholesterolemia Type 2 diabetes mellitus with hyperglycemia Bile salt-induced diarrhea Cystocele Obesity (BMI 30-39.9) Thyroid nodule Hypertension Surgical History H/O colonoscopy History of pubovaginal sling History of tonsillectomy History of thyroid surgery History of tubal ligation History of cholecystectomy Family History (Updated 01/08/23 @ 14:[address] CMA) Father Hypertension Dementia Elevated cholesterol Mother Asthma Diabetes Emphysema of lung Maternal Grandmother Skin cancer Lymphoma Maternal Grandfather Myocardial infarction Sister COPD (chronic obstructive pulmonary disease) Brother Diabetes Son Anxiety Social History Housing: House Alcohol intake: current Alcohol intake frequency: holidays/special occasions only Patient Tobacco Use Status: Former Tobacco user e-Cigarette/Vaping Use: Never Used Second Hand Smoke Exposure: No Current occupational status: retired 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 1. Little interest or pleasure in doing things: several days 2. Feeling down, depressed, or hopeless: not at all 3. Trouble falling or staying asleep, or sleeping too much: several days 4. Feeling tired or having little energy: several days 5. Poor appetite or overeating: several days (POOR APPETITE) 6. Feeling bad about yourself - or that you are a failure or have let yourself or your family down: not at all 7. Trouble concentrating on things, such as reading the newspaper or watching television: not at all 8. Moving or speaking so slowly that other people could have noticed. Or the opposite - being so fidgety or restless that you have been moving around a lot more than usual: not at all 9. Thoughts that you would be better off or of hurting yourself in some way: not at all Total score: 4 Depression Screening Interpretation: Negative Depression Screening Done: Yes Source: Developed by Mahogany Swann Kurt Kroenke and colleagues, with an educational srinivas from [employer]. Thrive Questionnaire Date Thrive assessed: 04/18/22 AUDIT C Alcohol Use Questionnaire (AUDIT-C) 1. How often do you have a drink containing alcohol?: Monthly or less 2. How many drinks containing alcohol do you have on a typical day when you are drinking?: 1 or 2 3. How often do you have six or more drinks on one occasion?: Never Total Score: 1 NEFTALI-7 AMB Questionnaire NEFTALI-7 Date NEFTALI - 7 assessed: 04/18/22 Source: Developed by Drs. Gurpreet Mancilla, Yovany Matson and colleagues, with an educational srinivas from [employer]. Physical exam (Primary Care) Vital Signs: Last Vital Signs Pulse 78 01/08/23 14:05 BP 152/88 H 01/08/23 14:05 Pulse Ox 98 01/08/23 14:05 Oxygen Delivery Method Room Air 01/08/23 14:05 BMI result Body Mass Index 32.4 Tobacco/Smoking Status: Tobacco use Status Tobacco use date assessed 04/18/22 01/08/23 14:06 Patient Tobacco Use Status Former Tobacco user 01/08/23 14:06 e-Cigarette/Vaping Use Never Used 01/08/23 14:06 PHQ-9: PHQ-9 Score PHQ-9: Total score 4 01/08/23 14:17 Depression Screening Interpretation: Negative Thrive Assessment: Date of Thrive Assessment Date Thrive assessed 04/18/22 01/08/23 14:06 Const General: alert; No acute distress Eyes Conjunctivae: conjunctivae normal Resp Auscultation: clear to auscultation bilaterally Cardio Rate: regular rate Rhythm: regular rhythm GI Inspection: Yes normal to inspection Extrem General: Yes normal to inspection and No edema Results AMB Hemoglobin A1c AMB Hemoglobin A1c 8.1 % Last Edit by Celina Lane CMA on 01/08/23 14:19 Assessment and Plan Assessment & Plan (1) Type 2 diabetes mellitus with hyperglycemia: Comment: Dr. Kirby Code(s): E11.65 - Type 2 diabetes mellitus with hyperglycemia Qualifiers: Diabetes mellitus mcc insulin use: without mcc use Qualified Code(s): E11.65 - Type 2 diabetes mellitus with hyperglycemia Plan: Decrease the amount of carbohydrate intake, pasta, bread, rice and potatoes are all sugar and that is aside from all the sweet stuff, remember that fruits are good but they are Sweet also. Hemoglobin A1c goal of less than 7.0 patient is on Trulicity a Mepron 4 mg once a day (2) Obesity (BMI 30-39.9): Code(s): E66.9 - Obesity, unspecified Plan: Diet and exercise (3) Hypertension: Code(s): I10 - Essential (primary) hypertension Qualifiers: Hypertension type: essential hypertension Qualified Code(s): I10 - Essential (primary) hypertension Plan: Continue with blood pressure medication. Decrease salt intake and exercise patient is taking lisinopril 20 mg once a day (4) Hypercholesterolemia: Code(s): E78.00 - Pure hypercholesterolemia, unspecified Plan: Avoid fried foods, chicken skin, eggs, butter margarine, pastries and meat. Be it pork or beef they have a lot of cholesterol LDL goal of less than 100 and triglyceride of less than 150 April last blood work on simvastatin 40 mg once a day (5) Recurrent major depression: Comment: Declined counseling December 2020, 03/2021 Code(s): F33.9 - Major depressive disorder, recurrent, unspecified Plan: Continue with present medication Orders: Orders AMB Hemoglobin A1c Today Z13.9 - Encounter for screening, unspecified Creatinine Urine 3 Months - Type 2 diabetes mellitus with hyperglycemia Microalbumin, Random (w Creat) 3 Months - Type 2 diabetes mellitus with hyperglycemia Thyroid Stimulating Hormone 3 Months - Type 2 diabetes mellitus with hyperglycemia Vitamin B12 and Folate 3 Months - Type 2 diabetes mellitus with hyperglycemia Complete Blood Count Auto Diff 3 Months - Type 2 diabetes mellitus with hyperglycemia Comprehensive Met. Panel 3 Months - Type 2 diabetes mellitus with hyperglycemia Lipid Panel 3 Months - Type 2 diabetes mellitus with hyperglycemia, E78.00 - Pure hypercholesterolemia, unspecified Free T4 (Free Thyroxine) 3 Months - Type 2 diabetes mellitus with hyperglycemia Vitamin D 25-OH Total 3 Months - Type 2 diabetes mellitus with hyperglycemia Hemoglobin A1c 3 Months - Type 2 diabetes mellitus with hyperglycemia Medications: Changed From lisinopril 20 mg PO DAILY 90 days 90 tabs 2RF I10 - Essential (primary) hypertension To lisinopril 30 mg PO DAILY 90 days 90 tabs 2RF I10 - Essential (primary) hypertension From dulaglutide 1.5 mg (0.5 mL) subcut QWEEK 90 days 12 ea 3RF E11.65 - Type 2 diabetes mellitus with hyperglycemia To dulaglutide 3 mg (0.5 mL) subcut QWEEK 90 days 2 mL 3RF E11.65 - Type 2 diabetes mellitus with hyperglycemia From sertraline 25 mg PO DAILY 90 tabs 2RF F32.9 - Major depressive disorder, single episode, unspecified, F41.9 - Anxiety disorder, unspecified To sertraline 50 mg PO DAILY 90 tabs 2RF F32.9 - Major depressive disorder, single episode, unspecified, F41.9 - Anxiety disorder, unspecified Refilled alprazolam 0.25 mg PO TID 90 days PRN 60 tabs 0RF anxiety F33.9 - Major depressive disorder, recurrent, unspecified Coding Level of Care Code Est Pt Level 4 (50306) Diagnoses Type 2 diabetes mellitus with hyperglycemia, without long-term current use of insulin E11.65 Diabetes mellitus mcc insulin use: without watermaster use Obesity (BMI 30-39.9) E66.9 Essential hypertension I10 Hypertension type: essential hypertension Hypercholesterolemia E78.00 Recurrent major depression F33.9
== END 2023-01-08 14:40 | disposition home or self-care (01) ==
PROVIDERS: PCP Internal Medicine; Visit Provider Internal Medicine
DX: Z23 Encounter for immunization (principal); E11.65 Type 2 diabetes mellitus with hyperglycemia; I10 Essential (primary) hypertension; E78.00 Pure hypercholesterolemia, unspecified; F33.9 Major depressive disorder, recurrent, unspecified
CPT/HCPCS: 83036; 90471; 90686; 99214

== ENCOUNTER 2023-04-16 11:00 | Outpatient (AMB) | payer MEDICARE, SELFPAY ==
[2023-04-16 11:09] VITALS: BP 152/90; PULSE 74; O2SAT 99; BMI 32.6
--- NOTE | 2023-04-16 11:09 | A.OFFPC_ITS ---
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 Required: No Allergies adhesive [BANDAGE,ADHESIVE] Allergy (Severe, Verified 04/16/23 11:09) SKIN PEELS OFF latex [LATEX] Allergy (Intermediate, Verified 04/16/23 11:09) SKIN BLEEDS, REDNESS metformin Allergy (Intermediate, Verified 04/16/23 11:09) diarrhea Penicillins [PENICILLINS] Allergy (Intermediate, Verified 04/16/23 11:09) HOT SWELLING Sulfa (Sulfonamide Antibiotics) Allergy (Intermediate, Verified 04/16/23 11:09) weakness, lethargy azithromycin [Zithromax Z-Remi] Allergy (Unknown, Verified 04/16/23 11:09) reaction unknown Medication List - Last Reconciled 04/16/23 by Carmelo Marsh MD alprazolam 0.25 mg PO TID PRN 90 days blood sugar diagnostic As directed check the blood sugar once a day blood-glucose meter As directed check the blood sugar once a day calcium carbonate (Calcium) 600 mg PO DAILY cyanocobalamin (vitamin B-12) 1,000 mcg PO DAILY dulaglutide 3 mg (0.5 mL) subcut QWEEK 90 days gabapentin 100 mg PO BID glimepiride 4 mg PO DAILY lisinopril 30 mg PO DAILY 90 days multivitamin 1 tab PO DAILY sertraline 50 mg PO DAILY simvastatin 40 mg PO BEDTIME Tobacco use date assessed: 04/16/23 Fall risk assessment: No Falls in past year Last assessed Fall Risk: 04/16/23 Dental Screening Dental Screen Date: 04/16/23 HPI DM HPI Details 68-year-old obese female with diabetes m ellitus hypertension hypercholesterolemia and recurrent major depression coming in for follow-up. Last seen in January 2023. Mammogram is up-to-date and due this month bone density is up-to-date colonoscopy is up-to-date. June 2022 patient is reminded about blood work [facility] Medical History (Updated 04/16/23 @ 11:56 by Carmelo Marsh MD) Colon cancer screening History of COVID-19 Irritable bowel syndrome Vitamin D deficiency Hypercholesterolemia Type 2 diabetes mellitus with hyperglycemia Bile salt-induced diarrhea Cystocele Obesity (BMI 30-39.9) Thyroid nodule Hypertension Surgical History H/O colonoscopy History of pubovaginal sling History of tonsillectomy History of thyroid surgery History of tubal ligation History of cholecystectomy Family History (Updated 01/08/23 @ 14:[address] FISH HEADER) Father Hypertension Dementia Elevated cholesterol Mother Asthma Diabetes Emphysema of lung Maternal Grandmother Skin cancer Lymphoma Maternal Grandfather Myocardial infarction Sister COPD (chronic obstructive pulmonary disease) Brother Diabetes Son Anxiety Social History Housing: House Alcohol intake: current Alcohol intake frequency: holidays/special occasions only Patient Tobacco Use Status: Former Tobacco user e-Cigarette/Vaping Use: Never Used Second Hand Smoke Exposure: No Current occupational status: retired 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 How often do you have a drink containing alcohol?: Monthly or less 2. How many drinks containing alcohol do you have on a typical day when you are drinking?: 1 or 2 3. How often do you have six or more drinks on one occasion?: Never Total Score: 1 NEFTALI-7 AMB Questionnaire NEFTALI-7 Date NEFTALI - 7 assessed: 04/16/23 Source: Developed by Drs. Gurpreet Mancilla, Mahogany Limon, Yovany Hunt and colleagues, with an educational srinivas from [employer]. Physical exam (Primary Care) Vital Signs: Last Vital Signs Pulse 74 04/16/23 11:09 BP 152/90 H 04/16/23 11:09 Pulse Ox 99 04/16/23 11:09 Oxygen Delivery Method Room Air 04/16/23 11:09 BMI result Body Mass Index 32.6 Tobacco/Smoking Status: Tobacco use Status Tobacco use date assessed 04/16/23 04/16/23 11:10 Patient Tobacco Use Status Former Tobacco user 04/16/23 11:10 e-Cigarette/Vaping Use Never Used 04/16/23 11:10 Thrive Assessment: Date of Thrive Assessment Date Thrive assessed 04/16/23 04/16/23 11:10 Const General: alert; No acute distress Eyes Conjunctivae: conjunctivae normal Resp Auscultation: clear to auscultation bilaterally Cardio Rate: regular rate Rhythm: regular rhythm GI Inspection: Yes normal to inspection Extrem General: Yes normal to inspection and No edema Results AMB Hemoglobin A1c AMB Hemoglobin A1c 8.5 % Last Edit by HAMZAH Hernandez on 04/16/23 11:24 Results Reviewed Results Reviewed: Laboratory Last Values Hgb A1c (Clinic) 8.5 % (4.0-6.0) H 04/16/23 09:04 Assessment and Plan Assessment & Plan (1) Type 2 diabetes mellitus with hyperglycemia: Comment: Dr. Kirby Code(s): E11.65 - Type 2 diabetes mellitus with hyperglycemia Qualifiers: Diabetes mellitus prison insulin use: without prison use Qualified Code(s): E11.65 - Type 2 diabetes mellitus with hyperglycemia Plan: Decrease the amount of carbohydrate intake, pasta, bread, rice and potatoes are all sugar and that is aside from all the sweet stuff, remember that fruits are good but they are Sweet also. Hemoglobin A1c goal of less than 7.0 patient presently on Trulicity glimepiride 4 mg once a day (2) Obesity (BMI 30-39.9): Code(s): E66.9 - Obesity, unspecified Plan: Diet and exercise (3) Hypertension: Code(s): I10 - Essential (primary) hypertension Qualifiers: Hypertension type: essential hypertension Qualified Code(s): I10 - Essential (primary) hypertension Plan: Continue with blood pressure medication. Decrease salt intake and exercise patient is on lisinopril 30 mg once a day (4) Hypercholesterolemia: Code(s): E78.00 - Pure hypercholesterolemia, unspecified Plan: Avoid fried foods, chicken skin, eggs, butter margarine, pastries and meat. Be it pork or beef they have a lot of cholesterol LDL goal of less than 100 and triglyceride of less than 150. Reminded about blood work (5) Recurrent major depression: Comment: Declined counseling December 2020, 03/2021 Code(s): F33.9 - Major depressive disorder, recurrent, unspecified Plan: Continue with therapy with sertraline (6) Insomnia: Code(s): G47.00 - Insomnia, unspecified Orders: Orders AMB Hemoglobin A1c Today E11.65 - Type 2 diabetes mellitus with hyperglycemia Medications: New trazodone 50 mg PO BEDTIME PRN 30 tabs 3RF sleep G47.00 - Insomnia, unspecified Coding Level of Care Code Est Pt Level 4 (94961) Diagnoses Type 2 diabetes mellitus with hyperglycemia, without long-term current use of insulin E11.65 Diabetes mellitus long term acute care registered nurse insulin use: without long term acute care registered nurse use Obesity (BMI 30-39.9) E66.9 Essential hypertension I10 Hypertension type: essential hypertension Hypercholesterolemia E78.00 Recurrent major depression F33.9 Insomnia G47.00
== END 2023-04-16 12:13 | disposition home or self-care (01) ==
PROVIDERS: PCP Internal Medicine; Visit Provider Internal Medicine
DX: E11.65 Type 2 diabetes mellitus with hyperglycemia (principal); F33.9 Major depressive disorder, recurrent, unspecified; Z68.32 Body mass index [BMI] 32.0-32.9, adult; E66.9 Obesity, unspecified; I10 Essential (primary) hypertension; E78.00 Pure hypercholesterolemia, unspecified; G47.00 Insomnia, unspecified
CPT/HCPCS: 83036; 99214

== ENCOUNTER 2023-05-07 12:19 | Outpatient (REF) | payer MEDICARE, SELFPAY ==
--- NOTE | ~2023-05-07 | MM_ITS ---
EXAMINATION: MM SCREENING DIGITAL BREAST TOMOSYNTHESIS, BILATERAL CLINICAL INFORMATION: Screening. Asymptomatic. COMPARISON: Mammography: This study is compared with prior exams dating back to 2019. TECHNIQUE: Digital breast tomosynthesis is performed in both the craniocaudal and mediolateral oblique views along with computer-aided detection (CAD). Synthesized 2D images are generated from the tomosynthesis. FINDINGS: There are scattered areas of fibroglandular density (ACR BI-RADS breast composition Category b). There are no significant masses, abnormal calcifications, or other abnormalities. There are 2 tissue markers in the upper outer quadrant of the left breast from prior benign percutaneous biopsies. MM/MM tomosynthesis screening BI IMPRESSION: No mammographic evidence of malignancy. ASSESSMENT: BI-RADS BI-RADS 2 - Benign Findings RECOMMENDATION: Routine annual mammography screening. 1 year F/U This examination should not preclude the clinical evaluation of a suspicious palpable abnormality. This patient's information was entered into a reminder system with a target due date for their next mammogram.
== END 2023-05-07 12:20 | disposition home or self-care (01) ==
LOC: HO.MAMMO 12:19
PROVIDERS: PCP Internal Medicine; Visit Provider Internal Medicine
DX: Z12.31 Encounter for screening mammogram for malignant neoplasm of breast (principal)
CPT/HCPCS: 77063; 77067

== ENCOUNTER → 2023-05-07 12:30 | Outpatient (BNV) | payer MEDICARE, SELFPAY | PROVIDERS: PCP Internal Medicine; Visit Provider Radiology Diagnostic Radiology | DX: Z12.31 Encounter for screening mammogram for malignant neoplasm of breast (principal) | CPT/HCPCS: 77063; 77067 ==